=== PATIENT | female | born 1935 | race Caucasian/White ===

== ENCOUNTER → 2017-04-25 | Outpatient (CLI) | payer OTHER ==
[~2017-04-25] MED LIST: ASPI-650 PO; ATEN25TA PO; CHOL10002 PO; LISI40TA PO; MULT-516 PO; OMEG100023 PO; VITA1TAB19 PO
[2017-04-26 09:41] LABS: ASPARTATE AMINO TRANSFERASE 13 U/L (15-37); BLOOD UREA NITROGEN 32 mg/dL (7-18)
== END | disposition home or self-care (01) ==
LOC: STAR 06:41
PROVIDERS: ATTEND Specialist
DX: Z01.818 Encounter for other preprocedural examination (principal)
CPT/HCPCS: 36415; 80053; 93005

== ENCOUNTER 2017-05-08 06:52 | Day surgery (SDC) | payer OTHER ==
[~2017-05-08] VITALS: Ht 157.5 cm; Wt 57.5 kg
[2017-05-08] MEDS ORDERED: ESTROGENS CONJUGATED VAG CRM 0.625MG/1G, 30GM ONE (06:57)
[2017-05-08] MEDS ORDERED: GENTAMICIN 80 MG/2 ML ONE (06:57)
[2017-05-08] MEDS ORDERED: BUPIVACAINE/PF 0.25% ONE (06:58)
[2017-05-08] MEDS ORDERED: VANCOMYCIN 500 MG ONE (06:58)
[2017-05-08] MEDS ORDERED: LACTATED RINGERS 1,000 ML IV SCH (07:35)
[2017-05-08 07:39] VITALS: BP 150/75
[2017-05-08] MEDS ORDERED: THROMBIN 5,000 UNIT VIAL TP ONE (09:27)
[2017-05-08] MEDS ORDERED: FENTANYL PF 100 MCG/2ML ONE (09:33)
[2017-05-08] MEDS ORDERED: BUPIVACAINE/PF-EPI 0.25% 1:200K ONE ×2 (09:44→10:47)
[2017-05-08] MEDS ORDERED: FENTANYL PF 250 MCG/5ML ONE (10:52)
[2017-05-08] MEDS ORDERED: FLUORESCEIN SODIUM 500 MG/5 ML ONE (10:57)
[2017-05-08] MEDS ORDERED: OXYcodone 5 MG/5 ML ORAL.SOL UDC ONE (12:08)
[2017-05-08] MEDS ORDERED: ACETAMINOPHEN 650 MG/20.3 ML UDC ONE (12:08)
[2017-05-08] MEDS ORDERED: FENTANYL PF 100 MCG/2ML IV PRN ×2 (12:30)
[2017-05-08] MEDS ORDERED: hydrALAzine 20 MG/ML, 1ML IV PRN (12:30)
[2017-05-08] MEDS ORDERED: OXYcodone 5 MG/5 ML ORAL.SOL UDC PO PRN ×2 (12:30)
[2017-05-08] MEDS ORDERED: ALBUTEROL SULFATE 2.5 MG/3 ML NPPB PRN (12:30)
[2017-05-08] MEDS ORDERED: METOPROLOL 1 MG/ML, 5ML IV PRN (12:30)
[2017-05-08] MEDS ORDERED: ACETAMINOPHEN 325 MG TABLET PO PRN ×2 (12:30)
[2017-05-08] MEDS ORDERED: HYDROmorphone 1 MG/ML, 1ML IV PRN (12:30)
[2017-05-08] MEDS ORDERED: CEFOTETAN 1 GM ONE (15:22)
[2017-05-08] MEDS ORDERED: GLYCOPYRROLATE 0.2MG/1ML ONE (15:22)
[2017-05-08] MEDS ORDERED: NEOSTIGMINE 1 MG/ML, 10ML ONE (15:22)
[2017-05-08] MEDS ORDERED: ONDANSETRON 2MG/ML, 2ML ONE (15:22)
[2017-05-08] MEDS ORDERED: PROPOFOL 10 MG/ML, 20ML ONE (15:22)
[2017-05-08] MEDS ORDERED: ROCURONIUM 10 MG/ML ONE (15:22)
[2017-05-08] MEDS ORDERED: EPHEDRINE 50 MG/ML, 1ML ONE (15:22)
== END 2017-05-08 14:50 | disposition home or self-care (01) ==
LOC: OUT 06:52
PROVIDERS: ATTEND Specialist
DX: N99.3 Prolapse of vaginal vault after hysterectomy (principal); I10 Essential (primary) hypertension; K21.9 Gastro-esophageal reflux disease without esophagitis; E78.5 Hyperlipidemia, unspecified; Z86.11 Personal history of tuberculosis; Z90.710 Acquired absence of both cervix and uterus; Z90.722 Acquired absence of ovaries, bilateral; Z90.79 Acquired absence of other genital organ(s); M85.80 Other specified disorders of bone density and structure, unspecified site; Z80.0 Family history of malignant neoplasm of digestive organs; Z82.49 Family history of ischemic heart disease and other diseases of the circulatory system; Z83.3 Family history of diabetes mellitus; Z83.49 Family history of other endocrine, nutritional and metabolic diseases
CPT/HCPCS: 57120; 57265; 57288; C1771; J1580; J2405; J2704; J2710; J3010; J3370; J7120; J3490; S0074

== ENCOUNTER 2021-08-18 09:45 | Emergency (ER) | payer MEDICARE ==
[~2021-08-18] VITALS: Ht 157.5 cm; Wt 54.1 kg
[2021-08-18 11:51] VITALS: BP 196/78
== END 2021-08-18 12:52 | disposition home or self-care (01) ==
LOC: ED 10:16
DX: S00.01XA Abrasion of scalp, initial encounter (principal); S09.90XA Unspecified injury of head, initial encounter; I10 Essential (primary) hypertension; E11.9 Type 2 diabetes mellitus without complications; W01.0XXA Fall on same level from slipping, tripping and stumbling without subsequent striking against object, initial encounter; Y93.89 Activity, other specified; Y92.009 Unspecified place in unspecified non-institutional (private) residence as the place of occurrence of the external cause; Y99.8 Other external cause status